=== PATIENT | male | born 1945 | race Two or more races ===

== ENCOUNTER 2021-11-10 10:17 | Outpatient (CLI) | payer OTHER | END 2021-11-10 10:25 | disposition home or self-care (01) | LOC: RX STUDY 10:17 | PROVIDERS: ATTEND Internal Medicine Gastroenterology | DX: K22.2 Esophageal obstruction (principal) ==

== ENCOUNTER → 2022-01-30 07:41 | Outpatient (CLI) | payer OTHER | END | disposition home or self-care (01) | LOC: NUCLEAR 07:41 | PROVIDERS: ATTEND Specialist | DX: I73.9 Peripheral vascular disease, unspecified (principal) ==